=== PATIENT | female | born 1995 | race Caucasian/White ===

== ENCOUNTER 2017-06-04 21:53 | Emergency (ER) | payer OTHER, MEDICAID ==
[2017-06-05] MEDS: ONDANSETRON 4 MG INJ IV (01:51)
[2017-06-05] MEDS: SOD CHLORIDE 0.9% 1,000 ML IV (01:51)
[2017-06-05] MEDS: KETOROLAC 30 MG INJ IV (01:51)
[2017-06-05 02:18] LABS: ADD MAN DIFF? NO
[2017-06-05 02:20] LABS: BASOPHIL # 0.1 10^3/ul (0.0-0.1); BASOPHILS % 0.5 % (0.0-2.0); EOSINOPHILS % 0.2 % (0.0-7.0); HEMATOCRIT 41.8 % (37.0-47.0); HEMOGLOBIN 14.1 g/dl (12.0-16.0); LYMPHOCYTES # 1.9 10^3/ul (0.8-2.9); LYMPHOCYTES % 15.7 % (15.0-51.0); MEAN CORPUSCULAR HEMOGLOBIN 29.1 pg (29.0-33.0); MEAN CORPUSCULAR HGB CONC 33.7 g/dl (32.0-37.0); MEAN CORPUSCULAR VOLUME 86.4 fl (82.0-101.0); MEAN PLATELET VOLUME 10.7 fl (7.4-10.4); MONOCYTE # 0.7 10^3/ul (0.3-0.9); MONOCYTES % 5.9 % (0.0-11.0); NEUTROPHIL # 9.4 10^3/ul (1.6-7.5); NEUTROPHILS % 77.2 % (39.0-77.0); PLATELET COUNT 299 10^3/UL (140-415); RED BLOOD COUNT 4.84 10^6/ul (4.20-5.40); RED CELL DISTRIBUTION WIDTH 13.1 % (11.5-14.5)
[2017-06-05 02:20] LABS: WHITE BLOOD COUNT 12.1 10^3/ul (4.8-10.8)
[2017-06-05 02:33] LABS: ADD UMIC YES; UR AMORPHOUS CRYSTAL FEW /HPF (NONE SEEN); UR ASCORBIC ACID 20 mg/dL (NEGATIVE); UR BACTERIA FEW /HPF (NONE SEEN); UR BILIRUBIN (Dip) NEGATIVE (NEGATIVE); UR BLOOD (Dip) 2+ mg/dL (NEGATIVE); UR CLARITY CLOUDY (CLEAR); UR COLOR RED (YELLOW); UR GLUCOSE (Dip) NEGATIVE (NEGATIVE); UR KETONES (Dip) NEGATIVE (NEGATIVE); UR LEUKOCYTE ESTERASE (Dip) 3+ Leu/ul (NEGATIVE); UR MUCUS FEW /HPF (NONE SEEN); UR NITRITE (Dip) POSITIVE (NEGATIVE); UR RBC 13 /HPF (0-5); UR SPECIFIC GRAVITY (Dip) 1.011 (1.003-1.030); UR SQUAMOUS EPITHELIAL CELL FEW /HPF (FEW); UR TOTAL PROTEIN (Dip) NEGATIVE (NEGATIVE); UR UROBILINOGEN (Dip) NEGATIVE (NEGATIVE); UR WBC > 182 /HPF (0-5)
[2017-06-05] MEDS: CEFTRIAXONE 1 GM/50 ML (PMX) 50 ML IVPB (03:13)
[2017-06-05 03:40] LABS: ALANINE AMINOTRANSFERASE 33 IU/L (13-69); ALBUMIN 4.1 g/dl (3.3-4.9); ALBUMIN/GLOBULIN RATIO 1.17; ALKALINE PHOSPHATASE 77 IU/L (42-121); ANION GAP 15 (8-16); ASPARTATE AMINO TRANSFERASE 19 IU/L (15-46); BILIRUBIN,INDIRECT 0.4 mg/dl (0-1.1); BILIRUBIN,TOTAL 0.4 mg/dl (0.2-1.3); BLOOD UREA NITROGEN 13 mg/dl (7-20); CALCIUM 9.5 mg/dl (8.4-10.2); CARBON DIOXIDE 29 mmol/L (21-31); CHLORIDE 103 mmol/L (97-110); CREATININE 0.68 mg/dl (0.44-1.00); GLUCOSE 108 mg/dl (70-220); LIPASE 70 U/L (23-300); POTASSIUM 4.4 mmol/L (3.5-5.1); SODIUM 143 mmol/L (135-144); TOTAL PROTEIN 7.6 g/dl (6.1-8.1)
== END 2017-06-05 04:11 | disposition home or self-care (01) ==
LOC: FTE 21:53
DX: N12 Tubulo-interstitial nephritis, not specified as acute or chronic (principal)
CPT/HCPCS: 36415; 80053; 81001; 83690; 85025; 87086; 96374; 96375; 99284-25

== ENCOUNTER 2017-09-26 17:07 | Emergency (ER) | payer OTHER ==
[2017-09-26 18:21] LABS: URINE BLOOD (Dip) POC 1+ (NEGATIVE); URINE GLUCOSE (Dip) POC Negative (NEGATIVE); URINE KETONES (Dip) POC 1+ (NEGATIVE); URINE LEUKOCYTE EST (Dip) POC Trace (NEGATIVE); URINE NITRITE (Dip) POC Negative (NEGATIVE); URINE TOTAL PROTEIN POC 2+ (NEGATIVE)
[2017-09-26 18:21] LABS: URINE PH (Dip) POC 6.5 (5.0-8.5)
[2017-09-26 18:43] LABS: ADD MAN DIFF? NO
[2017-09-26 18:45] LABS: WHITE BLOOD COUNT 12.7 10^3/ul (4.8-10.8)
[2017-09-26 18:45] LABS: BASOPHIL # 0.1 10^3/ul (0.0-0.1); BASOPHILS % 0.4 % (0.0-2.0); EOSINOPHILS % 0.3 % (0.0-7.0); HEMATOCRIT 42.1 % (37.0-47.0); HEMOGLOBIN 13.9 g/dl (12.0-16.0); LYMPHOCYTES # 1.7 10^3/ul (0.8-2.9); LYMPHOCYTES % 13.6 % (15.0-51.0); MEAN CORPUSCULAR HEMOGLOBIN 28.7 pg (29.0-33.0); MEAN PLATELET VOLUME 9.9 fl (7.4-10.4); MONOCYTE # 0.8 10^3/ul (0.3-0.9); MONOCYTES % 6.5 % (0.0-11.0); NEUTROPHIL # 9.9 10^3/ul (1.6-7.5); NEUTROPHILS % 78.6 % (39.0-77.0); PLATELET COUNT 379 10^3/UL (140-415); RED BLOOD COUNT 4.84 10^6/ul (4.20-5.40); RED CELL DISTRIBUTION WIDTH 12.8 % (11.5-14.5)
[2017-09-26] MEDS: SOD CHLORIDE 0.9% 1,000 ML IV (18:47)
[2017-09-26] MEDS: KETOROLAC 30 MG INJ IV (18:47)
[2017-09-26] MEDS: CEFTRIAXONE 2 GM/50 ML (PMX) 50 ML IVPB (18:52)
[2017-09-26 19:02] LABS: ANION GAP 17 (8-16); BLOOD UREA NITROGEN 17 mg/dl (7-20); CALCIUM 9.8 mg/dl (8.4-10.2); CARBON DIOXIDE 25 mmol/L (21-31); CHLORIDE 108 mmol/L (97-110); CREATININE 0.89 mg/dl (0.44-1.00); GLUCOSE 104 mg/dl (70-220); POTASSIUM 4.1 mmol/L (3.5-5.1); SODIUM 146 mmol/L (135-144)
== END 2017-09-26 19:49 | disposition home or self-care (01) ==
LOC: FTE 17:07
DX: N39.0 Urinary tract infection, site not specified (principal); R10.2 Pelvic and perineal pain
CPT/HCPCS: 80048; 81003; 81025; 85025; 96374; 96375; 99284-25

== ENCOUNTER 2017-11-16 15:28 | Emergency (ER) | payer OTHER ==
[2017-11-16] MEDS ORDERED: KETOROLAC 30 MG INJ IM (17:20)
[2017-11-16] MEDS: ACETAMINOPHEN 325 MG TAB PO (17:47)
[2017-11-16] MEDS: SOD CHLORIDE 0.9% 1,000 ML IV (17:47)
[2017-11-16 17:55] LABS: ADD MAN DIFF? NO; BASOPHIL # 0.1 10^3/ul (0.0-0.1); BASOPHILS % 0.4 % (0.0-2.0); EOSINOPHILS % 0.1 % (0.0-7.0); HEMATOCRIT 38.1 % (37.0-47.0); HEMOGLOBIN 12.5 g/dl (12.0-16.0); LYMPHOCYTES # 2.1 10^3/ul (0.8-2.9); LYMPHOCYTES % 12.8 % (15.0-51.0); MEAN CORPUSCULAR HEMOGLOBIN 28.4 pg (29.0-33.0); MEAN CORPUSCULAR HGB CONC 32.8 g/dl (32.0-37.0); MEAN CORPUSCULAR VOLUME 86.6 fl (82.0-101.0); MEAN PLATELET VOLUME 9.8 fl (7.4-10.4); MONOCYTE # 1.1 10^3/ul (0.3-0.9); MONOCYTES % 6.4 % (0.0-11.0); NEUTROPHIL # 13.1 10^3/ul (1.6-7.5); NEUTROPHILS % 79.8 % (39.0-77.0); PLATELET COUNT 416 10^3/UL (140-415); RED CELL DISTRIBUTION WIDTH 12.3 % (11.5-14.5)
[2017-11-16 17:55] LABS: WHITE BLOOD COUNT 16.5 10^3/ul (4.8-10.8)
[2017-11-16 18:12] LABS: ALANINE AMINOTRANSFERASE 25 IU/L (13-69); ALBUMIN/GLOBULIN RATIO 0.95; ALKALINE PHOSPHATASE 77 IU/L (42-121); ANION GAP 14 (8-16); ASPARTATE AMINO TRANSFERASE 20 IU/L (15-46); BILIRUBIN,INDIRECT 0.4 mg/dl (0-1.1); BILIRUBIN,TOTAL 0.4 mg/dl (0.2-1.3); BLOOD UREA NITROGEN 9 mg/dl (7-20); CALCIUM 8.8 mg/dl (8.4-10.2); CARBON DIOXIDE 24 mmol/L (21-31); CHLORIDE 101 mmol/L (97-110); CREATININE 0.68 mg/dl (0.44-1.00); GLUCOSE 113 mg/dl (70-220); POTASSIUM 3.9 mmol/L (3.5-5.1); SODIUM 135 mmol/L (135-144); TOTAL PROTEIN 8.2 g/dl (6.1-8.1)
[2017-11-16 18:41] LABS: URINE BLOOD (Dip) POC 2+ (NEGATIVE); URINE GLUCOSE (Dip) POC Negative (NEGATIVE); URINE KETONES (Dip) POC Negative (NEGATIVE); URINE LEUKOCYTE EST (Dip) POC Trace (NEGATIVE); URINE NITRITE (Dip) POC Negative (NEGATIVE); URINE TOTAL PROTEIN POC 1+ (NEGATIVE)
[2017-11-16 18:41] LABS: URINE PH (Dip) POC 8.5 (5.0-8.5)
[2017-11-16] MEDS: KETOROLAC 30 MG INJ IV (18:48)
== END 2017-11-16 19:40 | disposition home or self-care (01) ==
LOC: FTE 15:28
DX: R10.2 Pelvic and perineal pain (principal)
CPT/HCPCS: 80053; 81003; 81025; 85025; 87086; 96374; 99284-25

== ENCOUNTER 2017-11-17 17:45 | Inpatient (IN) | payer OTHER ==
[2017-11-17] MEDS: SODIUM CHLORIDE 0.9% 1L BAG IV* (18:26)
[2017-11-17 18:31] LABS: ADD MAN DIFF? NO
[2017-11-17 18:38] LABS: BASOPHIL # 0.1 10^3/ul (0.0-0.1); BASOPHILS % 0.3 % (0.0-2.0); HEMATOCRIT 40.2 % (37.0-47.0); HEMOGLOBIN 13.5 g/dl (12.0-16.0); LYMPHOCYTES # 2.2 10^3/ul (0.8-2.9); LYMPHOCYTES % 9.5 % (15.0-51.0); MEAN CORPUSCULAR HEMOGLOBIN 28.5 pg (29.0-33.0); MEAN CORPUSCULAR HGB CONC 33.6 g/dl (32.0-37.0); MONOCYTE # 1.3 10^3/ul (0.3-0.9); MONOCYTES % 5.5 % (0.0-11.0); NEUTROPHIL # 19.9 10^3/ul (1.6-7.5); NEUTROPHILS % 84.1 % (39.0-77.0); PLATELET COUNT 485 10^3/UL (140-415); RED BLOOD COUNT 4.73 10^6/ul (4.20-5.40); RED CELL DISTRIBUTION WIDTH 12.4 % (11.5-14.5)
[2017-11-17 18:38] LABS: WHITE BLOOD COUNT 23.6 10^3/ul (4.8-10.8)
[2017-11-17] MEDS: ACETAMINOPHEN 325 MG TAB PO ×2 (18:38→23:13)
[2017-11-17] MEDS: ONDANSETRON 4 MG INJ IV (18:38)
[2017-11-17 18:55] LABS: ALANINE AMINOTRANSFERASE 27 IU/L (13-69); ALBUMIN 4.3 g/dl (3.3-4.9); ALBUMIN/GLOBULIN RATIO 0.97; ALKALINE PHOSPHATASE 91 IU/L (42-121); ANION GAP 16 (8-16); ASPARTATE AMINO TRANSFERASE 20 IU/L (15-46); BILIRUBIN,INDIRECT 0.8 mg/dl (0-1.1); BILIRUBIN,TOTAL 0.8 mg/dl (0.2-1.3); BLOOD UREA NITROGEN 11 mg/dl (7-20); CALCIUM 9.5 mg/dl (8.4-10.2); CARBON DIOXIDE 22 mmol/L (21-31); CHLORIDE 100 mmol/L (97-110); CREATININE 0.89 mg/dl (0.44-1.00); GLUCOSE 121 mg/dl (70-220); POTASSIUM 3.5 mmol/L (3.5-5.1); SODIUM 134 mmol/L (135-144); TOTAL PROTEIN 8.7 g/dl (6.1-8.1)
[2017-11-17 18:57] LABS: ADD UMIC YES; UR ASCORBIC ACID NEGATIVE (NEGATIVE); UR BACTERIA FEW /HPF (NONE SEEN); UR BILIRUBIN (Dip) NEGATIVE (NEGATIVE); UR BLOOD (Dip) 1+ mg/dL (NEGATIVE); UR CLARITY CLOUDY (CLEAR); UR COLOR AMBER (YELLOW); UR GLUCOSE (Dip) NEGATIVE (NEGATIVE); UR KETONES (Dip) 1+ mg/dL (NEGATIVE); UR LEUKOCYTE ESTERASE (Dip) 1+ Leu/ul (NEGATIVE); UR MUCUS FEW /HPF (NONE SEEN); UR NITRITE (Dip) NEGATIVE (NEGATIVE); UR RBC 9 /HPF (0-5); UR SPECIFIC GRAVITY (Dip) 1.028 (1.003-1.030); UR SQUAMOUS EPITHELIAL CELL MODERATE /HPF (FEW); UR TOTAL PROTEIN (Dip) 2+ mg/dl (NEGATIVE); UR UROBILINOGEN (Dip) 1+ mg/dL (NEGATIVE); UR WBC 18 /HPF (0-5)
[2017-11-17 19:03] LABS: LACTIC ACID 1.8 mmol/L (0.5-2.0)
[2017-11-17 19:03] LABS: INR 1.21; PROTIME 15.5 Sec (11.9-14.9); PT RATIO 1.2
[2017-11-17 19:04] LABS: PARTIAL THROMBOPLASTIN TIME 42.5 Sec (25.0-35.0)
[2017-11-17 19:06] LABS: TROPONIN-I < 0.010 ng/ml (0.000-0.120)
[2017-11-17] MEDS: CEFTRIAXONE 1 GM/50 ML (PMX) 50 ML IVPB (19:34)
[2017-11-17] MEDS: morphine 4 MG/ML VIAL IV ×2 (19:38→23:13)
[2017-11-17] MEDS: PIPER-TAZO 3.375 GM IV (PMX) 100 ML IVPB (21:10)
[2017-11-17 22:37] LABS: LACTIC ACID 1.4 mmol/L (0.5-2.0)
[2017-11-17] MEDS ORDERED: ONDANSETRON 4 MG INJ IV (23:30)
[2017-11-17] MEDS ORDERED: ACETAMINOPHEN 325 MG TAB PO (23:30)
[2017-11-18] MEDS ORDERED: ALBUTEROL/IPRATROPIUM (NEB) 3 ML AMP HHN
[2017-11-18] MEDS ORDERED: NACL 0.9% 3 ML SYG IV
[2017-11-18] MEDS: PIPER-TAZO 3.375 GM IV (PMX) 100 ML IVPB ×3 (00:37→12:32)
[2017-11-18] MEDS: DEXTROSE 5%-0.45% NACL 1,000 ML IV ×4 (00:37→16:31)
[2017-11-18 00:40] LABS: LACTIC ACID 1.6 mmol/L (0.5-2.0)
[2017-11-18 05:11] LABS: ADD MAN DIFF? NO
[2017-11-18 05:15] LABS: WHITE BLOOD COUNT 22.6 10^3/ul (4.8-10.8)
[2017-11-18 05:15] LABS: HEMATOCRIT 36.7 % (37.0-47.0); HEMOGLOBIN 11.8 g/dl (12.0-16.0); LYMPHOCYTES % 9.9 % (15.0-51.0); MEAN CORPUSCULAR HEMOGLOBIN 28.2 pg (29.0-33.0); MEAN CORPUSCULAR HGB CONC 32.2 g/dl (32.0-37.0); MEAN CORPUSCULAR VOLUME 87.8 fl (82.0-101.0); MONOCYTES % 5.6 % (0.0-11.0); NEUTROPHILS % 83.7 % (39.0-77.0); RED BLOOD COUNT 4.18 10^6/ul (4.20-5.40); RED CELL DISTRIBUTION WIDTH 12.8 % (11.5-14.5)
[2017-11-18 05:16] LABS: BASOPHILS % 0.1 % (0.0-2.0); LYMPHOCYTES # 2.2 10^3/ul (0.8-2.9); MONOCYTE # 1.3 10^3/ul (0.3-0.9); NEUTROPHIL # 18.9 10^3/ul (1.6-7.5)
[2017-11-18 05:33] LABS: MEAN PLATELET VOLUME 12.1 fl (7.4-10.4); PLATELET COUNT 316 10^3/UL (140-415); POSITIVE DIFF @See below
[2017-11-18 07:16] LABS: ALANINE AMINOTRANSFERASE 20 IU/L (13-69); ALBUMIN 3.4 g/dl (3.3-4.9); ALBUMIN/GLOBULIN RATIO 0.85; ALKALINE PHOSPHATASE 71 IU/L (42-121); ANION GAP 12 (8-16); ASPARTATE AMINO TRANSFERASE 14 IU/L (15-46); BILIRUBIN,INDIRECT 0.5 mg/dl (0-1.1); BILIRUBIN,TOTAL 0.5 mg/dl (0.2-1.3); BLOOD UREA NITROGEN 9 mg/dl (7-20); CALCIUM 8.7 mg/dl (8.4-10.2); CARBON DIOXIDE 22 mmol/L (21-31); CHLORIDE 106 mmol/L (97-110); GLUCOSE 106 mg/dl (70-220); MAGNESIUM 2.1 mg/dl (1.7-2.5); PHOSPHORUS 2.8 mg/dl (2.5-4.9); POTASSIUM 3.6 mmol/L (3.5-5.1); SODIUM 136 mmol/L (135-144); TOTAL PROTEIN 7.4 g/dl (6.1-8.1)
[2017-11-18] MEDS: FAMOTIDINE 20 MG INJ IV ×2 (09:11→21:50)
[2017-11-18] MEDS: morphine 2 MG INJ IV (09:13)
[2017-11-18] MEDS: ACETAMINOPHEN 325 MG TAB PO ×2 (09:16→19:43)
[2017-11-18] MEDS: metroNIDAZOLE 500 MG/NS (PMX) 100 ML IVPB ×2 (16:31→21:50)
[2017-11-18] MEDS: LEVOFLOXACIN 500MG/D5W (PMX) 100 ML IVPB (18:03)
[2017-11-19] MEDS: BARIUM SULF 2% 450 ML BTL (BERRY SMOOTHIE) PO ×2 (00:51→10:50)
[2017-11-19] MEDS: ONDANSETRON 4 MG INJ IV ×3 (01:42→16:23)
[2017-11-19 05:46] LABS: ADD MAN DIFF? NO
[2017-11-19 05:53] LABS: WHITE BLOOD COUNT 19.4 10^3/ul (4.8-10.8)
[2017-11-19 05:53] LABS: BASOPHILS % 0.2 % (0.0-2.0); HEMATOCRIT 33.6 % (37.0-47.0); LYMPHOCYTES # 1.9 10^3/ul (0.8-2.9); LYMPHOCYTES % 9.5 % (15.0-51.0); MEAN CORPUSCULAR HEMOGLOBIN 28.2 pg (29.0-33.0); MEAN CORPUSCULAR HGB CONC 32.7 g/dl (32.0-37.0); MEAN CORPUSCULAR VOLUME 86.2 fl (82.0-101.0); MEAN PLATELET VOLUME 11.3 fl (7.4-10.4); MONOCYTES % 5.4 % (0.0-11.0); NEUTROPHIL # 16.3 10^3/ul (1.6-7.5); NEUTROPHILS % 84.2 % (39.0-77.0); PLATELET COUNT 413 10^3/UL (140-415); RED CELL DISTRIBUTION WIDTH 13.1 % (11.5-14.5)
[2017-11-19 06:39] LABS: ANION GAP 11 (8-16); BLOOD UREA NITROGEN 9 mg/dl (7-20); CALCIUM 8.5 mg/dl (8.4-10.2); CARBON DIOXIDE 24 mmol/L (21-31); CHLORIDE 104 mmol/L (97-110); CREATININE 0.64 mg/dl (0.44-1.00); GLUCOSE 136 mg/dl (70-220); MAGNESIUM 2.1 mg/dl (1.7-2.5); POTASSIUM 3.2 mmol/L (3.5-5.1); SODIUM 136 mmol/L (135-144)
[2017-11-19] MEDS: ACETAMINOPHEN 325 MG TAB PO ×2 (06:52→21:00)
[2017-11-19] MEDS: metroNIDAZOLE 500 MG/NS (PMX) 100 ML IVPB ×2 (06:52→14:08)
[2017-11-19] MEDS: DEXTROSE 5%-0.45% NACL 1,000 ML IV ×2 (06:52→21:01)
[2017-11-19] MEDS: FAMOTIDINE 20 MG INJ IV ×2 (09:46→21:00)
[2017-11-19] MEDS: SOD CHLORIDE 0.9% 100 ML (13:38)
[2017-11-19] MEDS: IOHEXOL 300MG/ML 150 ML BTL (13:38)
[2017-11-19] MEDS: PIPER-TAZO 3.375 GM IV (PMX) 100 ML IVPB ×2 (16:11→21:00)
[2017-11-19] MEDS: morphine 2 MG INJ IV (17:02)
[2017-11-20] MEDS: PIPER-TAZO 3.375 GM IV (PMX) 100 ML IVPB ×4 (00:36→17:24)
[2017-11-20 05:42] LABS: ADD MAN DIFF? NO
[2017-11-20 05:56] LABS: WHITE BLOOD COUNT 15.4 10^3/ul (4.8-10.8)
[2017-11-20 05:56] LABS: BASOPHILS % 0.3 % (0.0-2.0); EOSINOPHILS # 0.1 10^3/ul (0.0-0.5); EOSINOPHILS % 0.5 % (0.0-7.0); HEMATOCRIT 31.9 % (37.0-47.0); HEMOGLOBIN 10.5 g/dl (12.0-16.0); LYMPHOCYTES # 2.1 10^3/ul (0.8-2.9); LYMPHOCYTES % 13.8 % (15.0-51.0); MEAN CORPUSCULAR HEMOGLOBIN 28.5 pg (29.0-33.0); MEAN CORPUSCULAR HGB CONC 32.9 g/dl (32.0-37.0); MEAN CORPUSCULAR VOLUME 86.4 fl (82.0-101.0); MONOCYTES % 6.4 % (0.0-11.0); NEUTROPHILS % 77.8 % (39.0-77.0); PLATELET COUNT 434 10^3/UL (140-415); RED BLOOD COUNT 3.69 10^6/ul (4.20-5.40); RED CELL DISTRIBUTION WIDTH 13.2 % (11.5-14.5)
[2017-11-20 06:33] LABS: ANION GAP 10 (8-16); BLOOD UREA NITROGEN 10 mg/dl (7-20); CALCIUM 8.5 mg/dl (8.4-10.2); CARBON DIOXIDE 25 mmol/L (21-31); CHLORIDE 107 mmol/L (97-110); CREATININE 0.64 mg/dl (0.44-1.00); GLUCOSE 125 mg/dl (70-220); POTASSIUM 3.1 mmol/L (3.5-5.1); SODIUM 139 mmol/L (135-144)
[2017-11-20] MEDS ORDERED: ROCURONIUM 50 MG INJ ×2 (07:00→19:52)
[2017-11-20] MEDS: FAMOTIDINE 20 MG INJ IV ×2 (08:04→23:13)
[2017-11-20] MEDS: DEXTROSE 5%-0.45% NACL 1,000 ML IV ×2 (08:14→10:04)
[2017-11-20] MEDS: POTASSIUM CHLORIDE 100 ML IVPB ×2 (10:04→12:22)
[2017-11-20] MEDS: POTASSIUM CHLORIDE (SR) 20 MEQ TAB PO (11:45)
[2017-11-20] MEDS: D5W-0.45 NACL + KCL 20 MEQ 1,000 ML IV (11:46)
[2017-11-20] MEDS ORDERED: LIDOCAINE 2% (SDV) 5 ML INJ (19:52)
[2017-11-20] MEDS ORDERED: PROPOFOL 20 ML (19:52)
[2017-11-20] MEDS ORDERED: MIDAZOLAM 1 MG/ML 2 ML INJ (19:52)
[2017-11-20] MEDS ORDERED: SUCCINYLCHOLINE CHLORIDE 100 MG/5 ML SYG IV (19:52)
[2017-11-20] MEDS ORDERED: ONDANSETRON 4 MG INJ IV (20:00)
[2017-11-20] MEDS ORDERED: MEPERIDINE 25 MG INJ IV (20:00)
[2017-11-20] MEDS ORDERED: OXYCODONE/ACETAMINOPHEN (5/325) TAB PO (20:00)
[2017-11-20] MEDS ORDERED: FENTAnyl 50 MCG/ML VIAL IV ×2 (20:00)
[2017-11-20] MEDS ORDERED: LABETALOL HCL 20MG INJ IV (20:00)
[2017-11-20] MEDS ORDERED: HYDROmorphONE 1 MG/5 ML IV SYRINGE IV ×3 (20:00)
[2017-11-20] MEDS ORDERED: DIPHENHYDRAMINE 50 MG INJ IV (20:00)
[2017-11-20] MEDS ORDERED: hydrALAzine 20 MG INJ IV (20:00)
[2017-11-20] MEDS ORDERED: PROCHLORPERAZINE 10 MG INJ IV (20:00)
[2017-11-20] MEDS ORDERED: BUPIVACAINE 0.5%/EPI (SDV) 30 ML INJ (20:27)
[2017-11-20] MEDS ORDERED: SUGAMMADEX SODIUM 200 MG/2 ML VIAL IV ×2 (20:49→20:55)
[2017-11-20] MEDS ORDERED: ACETAMINOPHEN 325 MG TAB PO (21:00)
[2017-11-20] MEDS ORDERED: IBUPROFEN 600 MG TAB PO (21:00)
[2017-11-20] MEDS ORDERED: DEXAMETHASONE 4 MG/ML 1 ML INJ (21:09)
[2017-11-20] MEDS ORDERED: ONDANSETRON 4 MG INJ (21:09)
[2017-11-20] MEDS ORDERED: FAMOTIDINE 20 MG INJ (21:09)
[2017-11-20] MEDS: FENTAnyl 50 MCG/ML VIAL IV (21:23)
[2017-11-20] MEDS: morphine 2 MG INJ IV (23:12)
[2017-11-20] MEDS: D5-NS + KCL 20 MEQ 1,000 ML IV (23:12)
[2017-11-21] MEDS: PIPER-TAZO 3.375 GM IV (PMX) 100 ML IVPB ×5 (00:12→23:13)
[2017-11-21 04:59] LABS: ADD MAN DIFF? NO
[2017-11-21 05:06] LABS: WHITE BLOOD COUNT 17.2 10^3/ul (4.8-10.8)
[2017-11-21 05:06] LABS: BASOPHIL # 0.1 10^3/ul (0.0-0.1); BASOPHILS % 0.3 % (0.0-2.0); HEMATOCRIT 34.5 % (37.0-47.0); LYMPHOCYTES # 1.1 10^3/ul (0.8-2.9); LYMPHOCYTES % 6.4 % (15.0-51.0); MEAN CORPUSCULAR HEMOGLOBIN 27.6 pg (29.0-33.0); MEAN CORPUSCULAR HGB CONC 31.9 g/dl (32.0-37.0); MEAN CORPUSCULAR VOLUME 86.5 fl (82.0-101.0); MEAN PLATELET VOLUME 10.3 fl (7.4-10.4); MONOCYTE # 0.6 10^3/ul (0.3-0.9); MONOCYTES % 3.3 % (0.0-11.0); NEUTROPHIL # 15.3 10^3/ul (1.6-7.5); NEUTROPHILS % 88.5 % (39.0-77.0); PLATELET COUNT 550 10^3/UL (140-415); RED BLOOD COUNT 3.99 10^6/ul (4.20-5.40); RED CELL DISTRIBUTION WIDTH 13.4 % (11.5-14.5)
[2017-11-21 05:22] LABS: ANION GAP 13 (8-16); BLOOD UREA NITROGEN 9 mg/dl (7-20); CALCIUM 8.3 mg/dl (8.4-10.2); CARBON DIOXIDE 26 mmol/L (21-31); CHLORIDE 107 mmol/L (97-110); GLUCOSE 143 mg/dl (70-220); MAGNESIUM 1.9 mg/dl (1.7-2.5); POTASSIUM 3.8 mmol/L (3.5-5.1); SODIUM 142 mmol/L (135-144)
[2017-11-21] MEDS: ENOXAPARIN 40 MG/0.4 ML SYG SC (06:14)
[2017-11-21 07:33] LABS: ADD UMIC YES; UR ASCORBIC ACID NEGATIVE (NEGATIVE); UR BACTERIA FEW /HPF (NONE SEEN); UR BILIRUBIN (Dip) NEGATIVE (NEGATIVE); UR BLOOD (Dip) NEGATIVE (NEGATIVE); UR CLARITY SLIGHTLY CLOUDY (CLEAR); UR COLOR YELLOW (YELLOW); UR GLUCOSE (Dip) NEGATIVE (NEGATIVE); UR KETONES (Dip) NEGATIVE (NEGATIVE); UR LEUKOCYTE ESTERASE (Dip) NEGATIVE Leu/ul (NEGATIVE); UR NITRITE (Dip) NEGATIVE (NEGATIVE); UR RBC 7 /HPF (0-5); UR RENAL EPITHELIAL CELL FEW /HPF (NONE SEEN); UR SPECIFIC GRAVITY (Dip) 1.021 (1.003-1.030); UR SQUAMOUS EPITHELIAL CELL FEW /HPF (FEW); UR TOTAL PROTEIN (Dip) 2+ mg/dl (NEGATIVE); UR UROBILINOGEN (Dip) NEGATIVE (NEGATIVE); UR WBC 9 /HPF (0-5)
[2017-11-21] MEDS: FAMOTIDINE 20 MG INJ IV ×2 (08:46→21:11)
[2017-11-21] MEDS: D5-NS + KCL 20 MEQ 1,000 ML IV ×2 (10:59→19:15)
[2017-11-21] MEDS: ONDANSETRON 4 MG INJ IV ×2 (13:40→23:13)
[2017-11-21] MEDS: HYDROCODONE/APAP (5/325) TAB PO (13:49)
[2017-11-21] MEDS: morphine 2 MG INJ IV (23:14)
[2017-11-22] MEDS: D5-NS + KCL 20 MEQ 1,000 ML IV ×3 (00:37→11:43)
[2017-11-22 05:02] LABS: ADD MAN DIFF? NO
[2017-11-22 05:05] LABS: BASOPHILS % 0.3 % (0.0-2.0); EOSINOPHILS # 0.1 10^3/ul (0.0-0.5); EOSINOPHILS % 0.5 % (0.0-7.0); HEMOGLOBIN 10.1 g/dl (12.0-16.0); LYMPHOCYTES # 2.4 10^3/ul (0.8-2.9); MEAN CORPUSCULAR HEMOGLOBIN 28.2 pg (29.0-33.0); MEAN CORPUSCULAR HGB CONC 31.6 g/dl (32.0-37.0); MEAN CORPUSCULAR VOLUME 89.4 fl (82.0-101.0); MEAN PLATELET VOLUME 10.3 fl (7.4-10.4); MONOCYTE # 0.8 10^3/ul (0.3-0.9); MONOCYTES % 6.2 % (0.0-11.0); NEUTROPHIL # 9.1 10^3/ul (1.6-7.5); NEUTROPHILS % 71.4 % (39.0-77.0); PLATELET COUNT 516 10^3/UL (140-415); RED BLOOD COUNT 3.58 10^6/ul (4.20-5.40); RED CELL DISTRIBUTION WIDTH 13.4 % (11.5-14.5)
[2017-11-22 05:05] LABS: WHITE BLOOD COUNT 12.8 10^3/ul (4.8-10.8)
[2017-11-22 05:23] LABS: ANION GAP 9 (8-16); BLOOD UREA NITROGEN 11 mg/dl (7-20); CALCIUM 8.4 mg/dl (8.4-10.2); CARBON DIOXIDE 27 mmol/L (21-31); CHLORIDE 110 mmol/L (97-110); CREATININE 0.63 mg/dl (0.44-1.00); GLUCOSE 141 mg/dl (70-220); POTASSIUM 3.8 mmol/L (3.5-5.1); SODIUM 142 mmol/L (135-144)
[2017-11-22] MEDS: PIPER-TAZO 3.375 GM IV (PMX) 100 ML IVPB ×4 (06:31→23:48)
[2017-11-22] MEDS: ENOXAPARIN 40 MG/0.4 ML SYG SC (06:37)
[2017-11-22] MEDS: FAMOTIDINE 20 MG INJ IV ×2 (08:53→20:31)
[2017-11-22] MEDS: HYDROCODONE/APAP (5/325) TAB PO (17:23)
[2017-11-23] MEDS: D5-NS + KCL 20 MEQ 1,000 ML IV ×3 (02:18→16:48)
[2017-11-23] MEDS: morphine 2 MG INJ IV ×2 (02:43→12:59)
[2017-11-23 05:31] LABS: ADD MAN DIFF? NO
[2017-11-23 05:40] LABS: BASOPHILS % 0.3 % (0.0-2.0); EOSINOPHILS # 0.3 10^3/ul (0.0-0.5); EOSINOPHILS % 2.2 % (0.0-7.0); HEMATOCRIT 30.9 % (37.0-47.0); HEMOGLOBIN 9.8 g/dl (12.0-16.0); LYMPHOCYTES # 2.4 10^3/ul (0.8-2.9); LYMPHOCYTES % 20.3 % (15.0-51.0); MEAN CORPUSCULAR HEMOGLOBIN 28.1 pg (29.0-33.0); MEAN CORPUSCULAR HGB CONC 31.7 g/dl (32.0-37.0); MEAN CORPUSCULAR VOLUME 88.5 fl (82.0-101.0); MEAN PLATELET VOLUME 9.7 fl (7.4-10.4); MONOCYTE # 0.8 10^3/ul (0.3-0.9); MONOCYTES % 6.6 % (0.0-11.0); NEUTROPHILS % 67.6 % (39.0-77.0); PLATELET COUNT 569 10^3/UL (140-415); RED BLOOD COUNT 3.49 10^6/ul (4.20-5.40); RED CELL DISTRIBUTION WIDTH 13.9 % (11.5-14.5)
[2017-11-23 05:40] LABS: WHITE BLOOD COUNT 11.8 10^3/ul (4.8-10.8)
[2017-11-23 05:57] LABS: INR 1.25; PROTIME 15.9 Sec (11.9-14.9); PT RATIO 1.2
[2017-11-23 06:03] LABS: ALANINE AMINOTRANSFERASE 24 IU/L (13-69); ALBUMIN 2.8 g/dl (3.3-4.9); ALBUMIN/GLOBULIN RATIO 0.82; ALKALINE PHOSPHATASE 62 IU/L (42-121); ANION GAP 10 (8-16); ASPARTATE AMINO TRANSFERASE 19 IU/L (15-46); BILIRUBIN,INDIRECT 0.4 mg/dl (0-1.1); BILIRUBIN,TOTAL 0.4 mg/dl (0.2-1.3); BLOOD UREA NITROGEN 8 mg/dl (7-20); CALCIUM 8.3 mg/dl (8.4-10.2); CARBON DIOXIDE 27 mmol/L (21-31); CHLORIDE 107 mmol/L (97-110); GLUCOSE 109 mg/dl (70-220); POTASSIUM 3.6 mmol/L (3.5-5.1); SODIUM 140 mmol/L (135-144); TOTAL PROTEIN 6.2 g/dl (6.1-8.1)
[2017-11-23] MEDS: PIPER-TAZO 3.375 GM IV (PMX) 100 ML IVPB ×3 (06:17→18:30)
[2017-11-23] MEDS: ENOXAPARIN 40 MG/0.4 ML SYG SC (06:25)
[2017-11-23] MEDS: FAMOTIDINE 20 MG INJ IV ×2 (09:24→20:05)
[2017-11-23] MEDS: morphine LIQ (10 MG/5 ML) CUP PO (20:16)
[2017-11-23] MEDS: ONDANSETRON 4 MG INJ IV (22:32)
[2017-11-23] MEDS ORDERED: HYDROmorphONE 0.5 MG/0.5 ML SYG IV (23:00)
[2017-11-24] MEDS: PIPER-TAZO 3.375 GM IV (PMX) 100 ML IVPB ×2 (00:38→05:26)
[2017-11-24 05:28] LABS: ADD MAN DIFF? NO
[2017-11-24 05:34] LABS: BASOPHIL # 0.1 10^3/ul (0.0-0.1); BASOPHILS % 0.5 % (0.0-2.0); EOSINOPHILS # 0.4 10^3/ul (0.0-0.5); EOSINOPHILS % 3.4 % (0.0-7.0); HEMATOCRIT 30.9 % (37.0-47.0); HEMOGLOBIN 9.9 g/dl (12.0-16.0); LYMPHOCYTES # 2.4 10^3/ul (0.8-2.9); LYMPHOCYTES % 21.9 % (15.0-51.0); MEAN CORPUSCULAR HEMOGLOBIN 28.2 pg (29.0-33.0); MEAN PLATELET VOLUME 9.6 fl (7.4-10.4); MONOCYTE # 0.7 10^3/ul (0.3-0.9); NEUTROPHILS % 63.9 % (39.0-77.0); PLATELET COUNT 588 10^3/UL (140-415); RED BLOOD COUNT 3.51 10^6/ul (4.20-5.40); RED CELL DISTRIBUTION WIDTH 13.5 % (11.5-14.5)
[2017-11-24 05:53] LABS: ALANINE AMINOTRANSFERASE 29 IU/L (13-69); ALBUMIN 2.9 g/dl (3.3-4.9); ALBUMIN/GLOBULIN RATIO 0.82; ALKALINE PHOSPHATASE 64 IU/L (42-121); ANION GAP 10 (8-16); ASPARTATE AMINO TRANSFERASE 31 IU/L (15-46); BILIRUBIN,INDIRECT 0.4 mg/dl (0-1.1); BILIRUBIN,TOTAL 0.4 mg/dl (0.2-1.3); BLOOD UREA NITROGEN 6 mg/dl (7-20); CALCIUM 8.5 mg/dl (8.4-10.2); CARBON DIOXIDE 26 mmol/L (21-31); CHLORIDE 107 mmol/L (97-110); CREATININE 0.58 mg/dl (0.44-1.00); GLUCOSE 110 mg/dl (70-220); POTASSIUM 3.8 mmol/L (3.5-5.1); SODIUM 139 mmol/L (135-144); TOTAL PROTEIN 6.4 g/dl (6.1-8.1)
[2017-11-24 05:59] LABS: PARTIAL THROMBOPLASTIN TIME 36.9 Sec (25.0-35.0); PROTIME 15.4 Sec (11.9-14.9); PT RATIO 1.2
[2017-11-24] MEDS: ENOXAPARIN 40 MG/0.4 ML SYG SC (06:04)
[2017-11-24] MEDS: D5-NS + KCL 20 MEQ 1,000 ML IV ×2 (06:22→07:42)
[2017-11-24] MEDS: HYDROCODONE/APAP (5/325) TAB PO (07:46)
[2017-11-24] MEDS: FAMOTIDINE 20 MG INJ IV (09:30)
[2017-11-24] MEDS: CIPROFLOXACIN 500 MG TAB PO (09:35)
[2017-11-24] MEDS: metroNIDAZOLE 500 MG TAB PO (09:35)
[2017-11-24] MEDS: AMOXICILLIN/CLAV 875 MG TAB PO (11:41)
== END 2017-11-24 17:16 | disposition home health service (06) | DRG 854 ==
LOC: MS1 11-18 02:52 → FTE 17:45 → MS1 22:05
PROC: 0W9J40Z Drainage of Pelvic Cavity with Drainage Device, Percutaneous Endoscopic Approach (ICD-10-PCS; principal; 2017-11-20 09:00)
DX: A41.9 Sepsis, unspecified organism (principal); K57.20 Diverticulitis of large intestine with perforation and abscess without bleeding; Z68.41 Body mass index [BMI] 40.0-44.9, adult; E86.0 Dehydration; E87.6 Hypokalemia; E66.01 Morbid (severe) obesity due to excess calories; K52.9 Noninfective gastroenteritis and colitis, unspecified; K76.0 Fatty (change of) liver, not elsewhere classified; N20.0 Calculus of kidney
CPT/HCPCS: 36415; 71045; 74176; 74177; 80048; 80053; 81001; 81025; 83605; 83735; 84100; 84484; 85025; 85610; 85730; 87040; 87070; 87075; 87086; 87102; 87116; 96365; 96367; 96375; 99285-25

== ENCOUNTER 2018-07-24 08:18 | Inpatient (IN) | payer OTHER ==
[2018-07-24] MEDS: ONDANSETRON 4 MG INJ IV (08:59)
[2018-07-24] MEDS: ACETAMINOPHEN 325 MG TAB PO ×2 (08:59→22:16)
[2018-07-24] MEDS: SODIUM CHLORIDE 0.9% 1L BAG IV* (09:00)
[2018-07-24 09:24] LABS: ADD MAN DIFF? NO
[2018-07-24 09:27] LABS: WHITE BLOOD COUNT 16.4 10^3/ul (4.8-10.8)
[2018-07-24 09:27] LABS: BASOPHIL # 0.1 10^3/ul (0.0-0.1); BASOPHILS % 0.5 % (0.0-2.0); EOSINOPHILS # 0.1 10^3/ul (0.0-0.5); EOSINOPHILS % 0.4 % (0.0-7.0); HEMATOCRIT 39.5 % (37.0-47.0); HEMOGLOBIN 12.9 g/dl (12.0-16.0); LYMPHOCYTES # 2.5 10^3/ul (0.8-2.9); LYMPHOCYTES % 15.2 % (15.0-51.0); MEAN CORPUSCULAR HEMOGLOBIN 27.7 pg (29.0-33.0); MEAN CORPUSCULAR HGB CONC 32.7 g/dl (32.0-37.0); MEAN CORPUSCULAR VOLUME 84.9 fl (82.0-101.0); MEAN PLATELET VOLUME 10.3 fl (7.4-10.4); MONOCYTES % 6.3 % (0.0-11.0); NEUTROPHIL # 12.6 10^3/ul (1.6-7.5); NEUTROPHILS % 76.7 % (39.0-77.0); PLATELET COUNT 408 10^3/UL (140-415); RED BLOOD COUNT 4.65 10^6/ul (4.20-5.40); RED CELL DISTRIBUTION WIDTH 13.3 % (11.5-14.5)
[2018-07-24 09:35] LABS: ADD UMIC YES; UR ASCORBIC ACID 40 mg/dL (NEGATIVE); UR BACTERIA FEW /HPF (NONE SEEN); UR BILIRUBIN (Dip) NEGATIVE (NEGATIVE); UR BLOOD (Dip) NEGATIVE (NEGATIVE); UR CLARITY CLOUDY (CLEAR); UR COLOR AMBER (YELLOW); UR GLUCOSE (Dip) NEGATIVE (NEGATIVE); UR KETONES (Dip) 1+ mg/dL (NEGATIVE); UR LEUKOCYTE ESTERASE (Dip) 1+ Leu/ul (NEGATIVE); UR MUCUS FEW /HPF (NONE SEEN); UR NITRITE (Dip) NEGATIVE (NEGATIVE); UR RBC 22 /HPF (0-5); UR SPECIFIC GRAVITY (Dip) 1.025 (1.003-1.030); UR SQUAMOUS EPITHELIAL CELL MANY /HPF (FEW); UR TOTAL PROTEIN (Dip) 1+ mg/dl (NEGATIVE); UR UROBILINOGEN (Dip) 2+ mg/dL (NEGATIVE); UR WBC 26 /HPF (0-5)
[2018-07-24 09:55] LABS: ALANINE AMINOTRANSFERASE 6 IU/L (13-69); ALBUMIN 4.3 g/dl (3.3-4.9); ALBUMIN/GLOBULIN RATIO 0.87; ALKALINE PHOSPHATASE 100 IU/L (42-121); ANION GAP 12 (5-13); ASPARTATE AMINO TRANSFERASE 16 IU/L (15-46); BILIRUBIN,INDIRECT 0.7 mg/dl (0-1.1); BILIRUBIN,TOTAL 0.7 mg/dl (0.2-1.3); BLOOD UREA NITROGEN 9 mg/dl (7-20); CALCIUM 9.7 mg/dl (8.4-10.2); CARBON DIOXIDE 26 mmol/L (21-31); CHLORIDE 101 mmol/L (97-110); Estimated GFR > 60 mL/min (>60); GLUCOSE 109 mg/dl (70-220); POTASSIUM 4.1 mmol/L (3.5-5.1); SODIUM 139 mmol/L (135-144); TOTAL PROTEIN 9.2 g/dl (6.1-8.1)
[2018-07-24] MEDS: PIPER-TAZO 3.375 GM IV (PMX) 100 ML IVPB ×3 (10:09→22:12)
[2018-07-24] MEDS ORDERED: ACETAMINOPHEN 325 MG TAB PO (11:30)
[2018-07-24] MEDS ORDERED: ONDANSETRON 4 MG INJ IV (11:30)
[2018-07-24] MEDS: SOD CHLORIDE 0.9% 1,000 ML IV (16:10)
[2018-07-24] MEDS: POLYETHYLENE GLYCOL 17 GM PACKET PO (16:58)
[2018-07-24] MEDS: HYDROCODONE/APAP (5/325) TAB PO (20:18)
[2018-07-25] MEDS: SOD CHLORIDE 0.9% 1,000 ML IV (01:07)
[2018-07-25 04:57] LABS: ADD MAN DIFF? NO
[2018-07-25 04:58] LABS: WHITE BLOOD COUNT 19.1 10^3/ul (4.8-10.8)
[2018-07-25 04:58] LABS: BASOPHIL # 0.1 10^3/ul (0.0-0.1); BASOPHILS % 0.3 % (0.0-2.0); EOSINOPHILS # 0.1 10^3/ul (0.0-0.5); EOSINOPHILS % 0.3 % (0.0-7.0); HEMATOCRIT 36.1 % (37.0-47.0); HEMOGLOBIN 11.5 g/dl (12.0-16.0); LYMPHOCYTES # 2.2 10^3/ul (0.8-2.9); LYMPHOCYTES % 11.4 % (15.0-51.0); MEAN CORPUSCULAR HEMOGLOBIN 27.6 pg (29.0-33.0); MEAN CORPUSCULAR HGB CONC 31.9 g/dl (32.0-37.0); MEAN CORPUSCULAR VOLUME 86.6 fl (82.0-101.0); MEAN PLATELET VOLUME 9.8 fl (7.4-10.4); MONOCYTE # 1.4 10^3/ul (0.3-0.9); MONOCYTES % 7.2 % (0.0-11.0); NEUTROPHIL # 15.3 10^3/ul (1.6-7.5); PLATELET COUNT 383 10^3/UL (140-415); RED BLOOD COUNT 4.17 10^6/ul (4.20-5.40); RED CELL DISTRIBUTION WIDTH 13.4 % (11.5-14.5)
[2018-07-25 05:26] LABS: ANION GAP 8 (5-13); BLOOD UREA NITROGEN 6 mg/dl (7-20); CALCIUM 9.1 mg/dl (8.4-10.2); CARBON DIOXIDE 31 mmol/L (21-31); CHLORIDE 102 mmol/L (97-110); CREATININE 0.69 mg/dl (0.44-1.00); Estimated GFR > 60 mL/min (>60); GLUCOSE 113 mg/dl (70-220); MAGNESIUM 2.3 mg/dl (1.7-2.5); SODIUM 141 mmol/L (135-144)
[2018-07-25] MEDS: PIPER-TAZO 3.375 GM IV (PMX) 100 ML IVPB ×3 (06:26→22:18)
[2018-07-25] MEDS: POLYETHYLENE GLYCOL 17 GM PACKET PO (08:52)
[2018-07-25] MEDS: HYDROCODONE/APAP (5/325) TAB PO ×2 (08:54→19:14)
[2018-07-25] MEDS: ACETAMINOPHEN 325 MG TAB PO (13:12)
[2018-07-25] MEDS: metroNIDAZOLE 500 MG TAB PO ×2 (14:37→22:18)
[2018-07-25] MEDS: ASA/ACETAMINOPHEN/CAFF TAB PO (22:14)
[2018-07-26] MEDS: ACETAMINOPHEN 325 MG TAB PO (03:14)
[2018-07-26 05:14] LABS: ADD MAN DIFF? NO
[2018-07-26 05:19] LABS: WHITE BLOOD COUNT 16.5 10^3/ul (4.8-10.8)
[2018-07-26 05:19] LABS: BASOPHIL # 0.1 10^3/ul (0.0-0.1); BASOPHILS % 0.4 % (0.0-2.0); EOSINOPHILS # 0.1 10^3/ul (0.0-0.5); EOSINOPHILS % 0.5 % (0.0-7.0); HEMATOCRIT 36.3 % (37.0-47.0); HEMOGLOBIN 11.5 g/dl (12.0-16.0); LYMPHOCYTES # 2.3 10^3/ul (0.8-2.9); LYMPHOCYTES % 14.1 % (15.0-51.0); MEAN CORPUSCULAR HEMOGLOBIN 27.4 pg (29.0-33.0); MEAN CORPUSCULAR HGB CONC 31.7 g/dl (32.0-37.0); MEAN CORPUSCULAR VOLUME 86.4 fl (82.0-101.0); MEAN PLATELET VOLUME 9.9 fl (7.4-10.4); MONOCYTE # 1.2 10^3/ul (0.3-0.9); NEUTROPHIL # 12.7 10^3/ul (1.6-7.5); PLATELET COUNT 395 10^3/UL (140-415); RED CELL DISTRIBUTION WIDTH 13.4 % (11.5-14.5)
[2018-07-26] MEDS: PIPER-TAZO 3.375 GM IV (PMX) 100 ML IVPB ×3 (05:21→22:06)
[2018-07-26] MEDS: metroNIDAZOLE 500 MG TAB PO ×4 (05:21→23:56)
[2018-07-26 06:11] LABS: ANION GAP 10 (5-13); BLOOD UREA NITROGEN 4 mg/dl (7-20); CALCIUM 9.3 mg/dl (8.4-10.2); CARBON DIOXIDE 29 mmol/L (21-31); CHLORIDE 101 mmol/L (97-110); CREATININE 0.68 mg/dl (0.44-1.00); Estimated GFR > 60 mL/min (>60); GLUCOSE 116 mg/dl (70-220); POTASSIUM 4.3 mmol/L (3.5-5.1); SODIUM 140 mmol/L (135-144)
[2018-07-26] MEDS: POLYETHYLENE GLYCOL 17 GM PACKET PO (09:06)
[2018-07-26] MEDS: AZITHROMYCIN 500 MG TAB PO (11:11)
[2018-07-26 11:28] LABS: HEPATITIS B SURFACE ANTIGEN NEGATIVE (NEGATIVE)
[2018-07-26 11:45] LABS: HEPATITIS C VIRAL ANTIBODY NEGATIVE (NEGATIVE)
[2018-07-26 11:46] LABS: HEPATITIS B SURFACE ANTIBODY NEGATIVE (NEGATIVE)
[2018-07-26] MEDS: ONDANSETRON 4 MG INJ IV (12:35)
[2018-07-26] MEDS: ASA/ACETAMINOPHEN/CAFF TAB PO (16:54)
[2018-07-26 22:38] LABS: RAPID PLASMA REAGIN NONREACTIVE (NR)
[2018-07-27 05:30] LABS: ADD MAN DIFF? NO
[2018-07-27 05:49] LABS: BASOPHIL # 0.1 10^3/ul (0.0-0.1); BASOPHILS % 0.4 % (0.0-2.0); EOSINOPHILS # 0.1 10^3/ul (0.0-0.5); EOSINOPHILS % 0.5 % (0.0-7.0); HEMATOCRIT 35.7 % (37.0-47.0); HEMOGLOBIN 11.5 g/dl (12.0-16.0); LYMPHOCYTES # 2.3 10^3/ul (0.8-2.9); LYMPHOCYTES % 15.4 % (15.0-51.0); MEAN CORPUSCULAR HEMOGLOBIN 27.5 pg (29.0-33.0); MEAN CORPUSCULAR HGB CONC 32.2 g/dl (32.0-37.0); MEAN CORPUSCULAR VOLUME 85.4 fl (82.0-101.0); MEAN PLATELET VOLUME 10.1 fl (7.4-10.4); MONOCYTES % 6.5 % (0.0-11.0); NEUTROPHIL # 11.5 10^3/ul (1.6-7.5); NEUTROPHILS % 76.5 % (39.0-77.0); PLATELET COUNT 430 10^3/UL (140-415); RED BLOOD COUNT 4.18 10^6/ul (4.20-5.40); RED CELL DISTRIBUTION WIDTH 13.2 % (11.5-14.5)
[2018-07-27 06:23] LABS: ANION GAP 10 (5-13); BLOOD UREA NITROGEN 7 mg/dl (7-20); CALCIUM 9.7 mg/dl (8.4-10.2); CARBON DIOXIDE 30 mmol/L (21-31); CHLORIDE 101 mmol/L (97-110); CREATININE 0.77 mg/dl (0.44-1.00); Estimated GFR > 60 mL/min (>60); GLUCOSE 99 mg/dl (70-220); POTASSIUM 4.7 mmol/L (3.5-5.1); SODIUM 141 mmol/L (135-144)
[2018-07-27] MEDS: metroNIDAZOLE 500 MG TAB PO ×3 (06:23→22:02)
[2018-07-27] MEDS: PIPER-TAZO 3.375 GM IV (PMX) 100 ML IVPB ×3 (06:23→22:02)
[2018-07-27] MEDS: POLYETHYLENE GLYCOL 17 GM PACKET PO (09:00)
[2018-07-27] MEDS: ONDANSETRON 4 MG INJ IV (14:37)
[2018-07-27] MEDS: HYDROCODONE/APAP (5/325) TAB PO (16:51)
[2018-07-27] MEDS: IOHEXOL 14.3 MG(I)/ML (ADULT) BTL PO (18:04)
[2018-07-27] MEDS: IOHEXOL 300MG/ML 150 ML BTL (20:37)
[2018-07-27] MEDS: SOD CHLORIDE 0.9% 100 ML (20:37)
[2018-07-28] MEDS: PIPER-TAZO 3.375 GM IV (PMX) 100 ML IVPB ×3 (05:50→21:11)
[2018-07-28] MEDS: metroNIDAZOLE 500 MG TAB PO ×3 (05:50→21:16)
[2018-07-28] MEDS: POLYETHYLENE GLYCOL 17 GM PACKET PO (08:52)
[2018-07-28] MEDS: HYDROCODONE/APAP (5/325) TAB PO (21:16)
[2018-07-29] MEDS: metroNIDAZOLE 500 MG TAB PO ×3 (05:03→22:09)
[2018-07-29] MEDS: PIPER-TAZO 3.375 GM IV (PMX) 100 ML IVPB ×3 (05:03→22:09)
[2018-07-29] MEDS: HYDROCODONE/APAP (5/325) TAB PO ×2 (05:04→22:16)
[2018-07-29 05:14] LABS: ADD MAN DIFF? NO
[2018-07-29 05:21] LABS: WHITE BLOOD COUNT 10.2 10^3/ul (4.8-10.8)
[2018-07-29 05:21] LABS: BASOPHIL # 0.1 10^3/ul (0.0-0.1); BASOPHILS % 0.5 % (0.0-2.0); EOSINOPHILS # 0.1 10^3/ul (0.0-0.5); EOSINOPHILS % 1.2 % (0.0-7.0); HEMATOCRIT 34.8 % (37.0-47.0); LYMPHOCYTES # 1.4 10^3/ul (0.8-2.9); LYMPHOCYTES % 13.5 % (15.0-51.0); MEAN CORPUSCULAR HEMOGLOBIN 27.4 pg (29.0-33.0); MEAN CORPUSCULAR HGB CONC 31.6 g/dl (32.0-37.0); MEAN CORPUSCULAR VOLUME 86.6 fl (82.0-101.0); MEAN PLATELET VOLUME 9.9 fl (7.4-10.4); MONOCYTE # 0.6 10^3/ul (0.3-0.9); MONOCYTES % 6.3 % (0.0-11.0); NEUTROPHIL # 7.9 10^3/ul (1.6-7.5); NEUTROPHILS % 77.1 % (39.0-77.0); PLATELET COUNT 455 10^3/UL (140-415); RED BLOOD COUNT 4.02 10^6/ul (4.20-5.40); RED CELL DISTRIBUTION WIDTH 13.2 % (11.5-14.5)
[2018-07-29 05:36] LABS: ANION GAP 11 (5-13); BLOOD UREA NITROGEN 10 mg/dl (7-20); CALCIUM 9.3 mg/dl (8.4-10.2); CARBON DIOXIDE 26 mmol/L (21-31); CHLORIDE 103 mmol/L (97-110); CREATININE 0.56 mg/dl (0.44-1.00); Estimated GFR > 60 mL/min (>60); GLUCOSE 79 mg/dl (70-220); MAGNESIUM 2.2 mg/dl (1.7-2.5); SODIUM 140 mmol/L (135-144)
[2018-07-29] MEDS: POLYETHYLENE GLYCOL 17 GM PACKET PO (09:27)
[2018-07-29] MEDS: ONDANSETRON 4 MG INJ IV (14:41)
[2018-07-30 05:19] LABS: ADD MAN DIFF? NO
[2018-07-30 05:22] LABS: BASOPHIL # 0.1 10^3/ul (0.0-0.1); BASOPHILS % 0.5 % (0.0-2.0); EOSINOPHILS # 0.1 10^3/ul (0.0-0.5); EOSINOPHILS % 1.2 % (0.0-7.0); HEMATOCRIT 35.6 % (37.0-47.0); HEMOGLOBIN 11.5 g/dl (12.0-16.0); LYMPHOCYTES # 1.8 10^3/ul (0.8-2.9); LYMPHOCYTES % 17.7 % (15.0-51.0); MEAN CORPUSCULAR HEMOGLOBIN 27.6 pg (29.0-33.0); MEAN CORPUSCULAR HGB CONC 32.3 g/dl (32.0-37.0); MEAN CORPUSCULAR VOLUME 85.4 fl (82.0-101.0); MEAN PLATELET VOLUME 9.7 fl (7.4-10.4); MONOCYTE # 0.7 10^3/ul (0.3-0.9); MONOCYTES % 6.5 % (0.0-11.0); NEUTROPHIL # 7.3 10^3/ul (1.6-7.5); PLATELET COUNT 497 10^3/UL (140-415); RED BLOOD COUNT 4.17 10^6/ul (4.20-5.40); RED CELL DISTRIBUTION WIDTH 13.3 % (11.5-14.5)
[2018-07-30] MEDS: metroNIDAZOLE 500 MG TAB PO ×2 (05:36→13:32)
[2018-07-30] MEDS: PIPER-TAZO 3.375 GM IV (PMX) 100 ML IVPB ×2 (05:36→13:32)
[2018-07-30 05:51] LABS: ANION GAP 8 (5-13); BLOOD UREA NITROGEN 9 mg/dl (7-20); CALCIUM 9.4 mg/dl (8.4-10.2); CARBON DIOXIDE 32 mmol/L (21-31); CHLORIDE 101 mmol/L (97-110); Estimated GFR > 60 mL/min (>60); GLUCOSE 103 mg/dl (70-220); POTASSIUM 4.5 mmol/L (3.5-5.1); SODIUM 141 mmol/L (135-144)
[2018-07-30] MEDS: POLYETHYLENE GLYCOL 17 GM PACKET PO (08:33)
== END 2018-07-30 17:35 | disposition home health service (06) | DRG 872 ==
LOC: FTE 08:18 → MS1 11:27
DX: A41.9 Sepsis, unspecified organism (principal); Z68.41 Body mass index [BMI] 40.0-44.9, adult; E66.01 Morbid (severe) obesity due to excess calories; N83.201 Unspecified ovarian cyst, right side; N70.93 Salpingitis and oophoritis, unspecified; F17.200 Nicotine dependence, unspecified, uncomplicated
CPT/HCPCS: 74160; 74176; 76830; 76856; 80048; 80053; 81001; 81025; 83605; 83735; 85025; 86592; 86706; 86708; 86803; 87040-91; 87086; 87340; 87591; 96374; 96375; 99291-25